=== PATIENT | male | born 1985 | race Caucasian/White ===

== ENCOUNTER 2016-09-19 13:02 | Emergency (ER) | payer OTHER ==
[~2016-09-19] VITALS: Ht 172.7 cm; Wt 82.7 kg
[~2016-09-19 13:02] MED LIST: BENTYL10 MG PO; CLINDAMYCIN HC300 MG PO; FLEXERIL10 MG PO; LEVAQUIN750 MG PO; MOTRIN600 MG PO; PREDNISONE20 MG PO; TEARS NATURALE30 ML BOTH EYES; ULTRAM50 MG PO; ZOFRAN4 MG PO
[2016-09-19 14:21] LABS: ADD MIUA? NO; BILIRUBIN NEGATIVE; BLOOD NEGATIVE; COLOR YELLOW ((YELLOW)); GLUCOSE (STRIP) NEGATIVE; KETONES TRACE; LEUKOCYTES NEGATIVE; NITRITE NEGATIVE; PH, URINE 6.5 (5-8); PROTEIN (STRIP) NEGATIVE; SPECIFIC GRAVITY 1.018 (1.000-1.030); UCUL ADDED? NO; UROBILINOGEN 0.2 MG/DL (0.2-1.0)
[2016-09-19 14:33] LABS: MCH 28.8 PG (29.0-34.0); MCHC 34.7 G/DL (30.0-36.0); MCV 82.9 FL (86-99); MEAN PLAT.VOLUME 10.6 uM^3 (9.0-12.4); PLATELET COUNT 284 K/uL (156-360); RBC DIS.WIDTH-CV 13.4 % (11.8-14.6); RBC DIS.WIDTH-SD 40.6 % (39-53); RED BLOOD COUNT 5.91 M/uL (4.00-5.50); WHITE BLOOD COUNT 11.9 K/uL (4.1-10.2)
[2016-09-19 15:05] LABS: ANION GAP 16 MEQ/L (2-14); CHLORIDE 98 MEQ/L (99-109); POTASSIUM 3.9 MEQ/L (3.7-5.4); SAMPLE HEMOLYSIS CHECK 0; SAMPLE ICTERIC CHECK 0; SAMPLE LIPEMIA CHECK 0; SODIUM 141 MEQ/L (136-147); TOTAL BILIRUBIN 0.6 MG/DL (0.0-1.0)
[2016-09-19 15:10] LABS: ALKALINE PHOSPHATASE 118 IU/L (3-129); GFR ESTIMATE (CALCULATED) > 59 mL/min/; GLUCOSE 97 mg/dL (70-99); UREA NITROGEN (BUN) 9 mg/dL (9-23)
[2016-09-19] MEDS ORDERED: NAPROSYN500 MG PO (16:45)
[2016-09-19 16:49] LABS: AMYLASE 43 IU/L (1-118)
[2016-09-19 16:55] LABS: LIPASE 68 U/L (1.0-51.0)
[2016-09-19] MEDS ORDERED: ZOFRAN ODT4 MG PO (17:30)
[2016-09-19] MEDS ORDERED: FLAGYL500 MG PO (17:32)
[2016-09-19 17:46] VITALS: BP 122/74
== END 2016-09-19 17:45 | disposition home or self-care (01) ==
LOC: EME 13:02
DX: K85.90 Acute pancreatitis without necrosis or infection, unspecified (principal); K52.9 Noninfective gastroenteritis and colitis, unspecified; R00.0 Tachycardia, unspecified; F17.200 Nicotine dependence, unspecified, uncomplicated
CPT/HCPCS: 74177; 80053; 81003; 82150; 83690; 85027; 99281; 99284; J1885; J7040

== ENCOUNTER 2017-06-13 19:17 | Emergency (ER) | payer OTHER ==
[~2017-06-13] VITALS: Ht 177.8 cm; Wt 74.8 kg
[~2017-06-13 19:17] MED LIST changes: +FLAGYL500 MG PO; +NAPROSYN500 MG PO; +ZOFRAN ODT4 MG PO
[2017-06-13] MEDS ORDERED: NAPROSYN500 MG PO (20:27)
[2017-06-13] MEDS ORDERED: PEN-VEE K,VEET500 MG PO (20:27)
[2017-06-13 20:48] VITALS: BP 120/82
== END 2017-06-13 20:56 | disposition home or self-care (01) ==
LOC: EME 19:17 → RME 19:17
DX: K04.7 Periapical abscess without sinus (principal); K02.9 Dental caries, unspecified; F17.200 Nicotine dependence, unspecified, uncomplicated
CPT/HCPCS: 99281; 99283

== ENCOUNTER 2018-02-03 05:20 | Emergency (ER) | payer OTHER ==
[~2018-02-03] VITALS: Ht 172.7 cm; Wt 79.8 kg
[~2018-02-03 05:20] MED LIST changes: +PEN-VEE K,VEET500 MG PO
[2018-02-03 05:25] VITALS: BP 123/85
[2018-02-03] MEDS ORDERED: AUGMENTIN875 MG PO (05:39)
[2018-02-03] MEDS ORDERED: INDOCIN50 MG PO (05:39)
[2018-02-03] MEDS ORDERED: LIDOCAINE20 MG/1 M5 PO (05:39)
== END 2018-02-03 06:03 | disposition home or self-care (01) ==
LOC: EME 05:20
DX: K02.9 Dental caries, unspecified (principal); K04.7 Periapical abscess without sinus; F17.200 Nicotine dependence, unspecified, uncomplicated; Z88.6 Allergy status to analgesic agent
CPT/HCPCS: 99281; 99284